=== PATIENT | female | born 1995 | race Caucasian/White ===

== ENCOUNTER 2019-02-21 10:31 | Emergency (ER) | payer OTHER ==
[~2019-02-21] VITALS: Ht 162.6 cm; Wt 54.0 kg
[2019-02-21 10:35] VITALS: Ht 162.6 cm; Wt 54.0 kg
[2019-02-21 12:19] LABS: BASOPHIL % 0.1 % (0-2); PLATELET COUNT 255 x10^3mcL (130-400); RED CELL DISTRIBUTION WIDTH 12.6 % (11.5-14.5)
[2019-02-21 12:30] LABS: CALCIUM 8.8 mg/dL (8.5-10.1); CARBON DIOXIDE 25.8 mmol/L (21-32); CHLORIDE SERUM 107 mmol/L (98-107); CREATININE SERUM 0.8 mg/dL (0.6-1.0); GFR1 > 60 mL/min; GLUCOSE SERUM 90 mg/dL (74-106); POTASSIUM SERUM 4.8 mmol/L (3.5-5.1); SODIUM SERUM 142 mmol/L (136-145)
[2019-02-21 12:33] LABS: ALBUMIN 3.9 g/dL (3.4-5.0); ALKALINE PHOSPHATASE 62 U/L (46-116); ALT/SGPT 40 U/L (14-59); AST/SGOT 18 U/L (15-37); BILIRUBIN TOTAL 0.6 mg/dL (0.20-1.00); LIPASE 136 IU/L (73-393); TOTAL PROTEIN, SERUM 7.8 g/dL (6.4-8.2)
[2019-02-21 16:17] VITALS: BP 110/65
== END 2019-02-21 16:15 | disposition home or self-care (01) ==
LOC: ED 10:31
PROVIDERS: Emergency Medicine
DX: R11.10 Vomiting, unspecified (principal); R19.7 Diarrhea, unspecified; R10.13 Epigastric pain; R10.30 Lower abdominal pain, unspecified; R42 Dizziness and giddiness; R07.89 Other chest pain; R25.1 Tremor, unspecified
CPT/HCPCS: 87046; 87046-59; J1885; J2405; J7030

== ENCOUNTER 2019-04-28 20:32 | Emergency (ER) | payer OTHER ==
[~2019-04-28] VITALS: Ht 160 cm; Wt 55.8 kg
[2019-04-28 20:41] VITALS: Ht 160 cm; Wt 55.8 kg
[2019-04-28 22:58] VITALS: BP 111/87
== END 2019-04-28 22:58 | disposition home or self-care (01) ==
LOC: ED 20:32
DX: R30.0 Dysuria (principal); R11.10 Vomiting, unspecified
CPT/HCPCS: 87491; 87591